=== PATIENT | male | born 1960 | race Caucasian/White ===

== ENCOUNTER 2020-01-30 10:11 | Outpatient (CLI) | payer OTHER, SELFPAY ==
--- NOTE | ~2020-01-30 | XR_ITS ---
XR_[id number]_CR DATE: 01/30/2020 10:47 INDICATION: 3 weeks post cervical spine fusion TECHNIQUE: AP and lateral views COMPARISON: None FINDINGS: Status post anterior and interbody spinal fusion at C6-7. C1 and C2 are normally aligned and the odontoid process is intact. No fracture or dislocation or lock ed facet or prevertebral soft tissue swelling. Cervical interspaces are preserved. IMPRESSION: Status post anterior and interbody spinal fusion at C6-7 Reviewed, dictated and finalized at [facility]. Reviewed, dictated and finalized at [facility].
== END 2020-01-30 10:12 | disposition home or self-care (01) ==
LOC: ANHIMG 10:16
PROVIDERS: PCP Internal Medicine; Visit Provider Neurological Surgery
DX: Z09 Encounter for follow-up examination after completed treatment for conditions other than malignant neoplasm (principal); Z98.1 Arthrodesis status
CPT/HCPCS: 72040

== ENCOUNTER 2020-03-06 11:26 | Outpatient (CLI) | payer OTHER, SELFPAY ==
--- NOTE | ~2020-03-06 | XR_ITS ---
EXAMINATION:XR_CERV2-3V_CR DATE: 03/06/2020 12:01 INDICATION: Neck pain TECHNIQUE: AP, lateral, and odontoid views of the cervical spine are provided. COMPARISON: 01/30/2020 FINDINGS: Alignment is normal. The odontoid is intact. No fracture is identified. There are changes o f anterior fusion at C6-7. The vertebral body heights are maintained. There is mild loss of intervert ebral disc space height at C5-6. Prevertebral soft tissues are normal. IMPRESSION: 1. Anterior fusion at C6-7 without acute findings or significant interval change. Reviewed, dictated and finalized at [facility]. IMPRESSION: 1. Anterior fusion at C6-7 without acute findings or significant interval amrita atwood
== END 2020-03-06 11:27 | disposition home or self-care (01) ==
PROVIDERS: PCP Internal Medicine; Visit Provider Neurological Surgery
DX: Z98.1 Arthrodesis status (principal)
CPT/HCPCS: 72040

== ENCOUNTER 2020-12-25 12:58 | Outpatient (CLI) | payer OTHER, SELFPAY ==
--- NOTE | ~2020-12-25 | XR_ITS ---
XR_CERV2-3V_CR DATE: 12/25/2020 13:26 INDICATION: One-year following surgical spine fusion TECHNIQUE: AP and lateral views COMPARISON: 03/24/2020 cervical spine FINDINGS: Status post anterior and interbody spinal fusion at C6-7. The hardware is intact without fr acture or displacement. Normal alignment of the cerebral spine. No fracture or dislocation or locked facet or prevertebral so ft tissue swelling. There is minimal anterior spurring and mild loss of height at C5-6 consistent with mild degenerative disc disease. IMPRESSION: Status post anterior and interbody spinal fusion at C6-7 Mild degenerative disc disease at C5-6 Reviewed, dictated and finalized at [facility]. Reviewed, dictated and finalized at [facility].
== END 2020-12-25 12:59 | disposition home or self-care (01) ==
LOC: ANHIMG 13:04
PROVIDERS: PCP Internal Medicine; Visit Provider Neurological Surgery
DX: M50.322 Other cervical disc degeneration at C5-C6 level (principal); Z98.1 Arthrodesis status
CPT/HCPCS: 72040

== ENCOUNTER 2021-12-25 09:33 | Outpatient (CLI) | payer OTHER, SELFPAY ==
--- NOTE | ~2021-12-25 | XR_ITS ---
XR_CERV2-3V_CR DATE: 12/25/2021 10:00 INDICATION: Cervical spine fusion 2 years ago. Posterior neck pain. No injury. TECHNIQUE: AP, open-mouth, lateral views COMPARISON: 12/25/2020 cervical spine FINDINGS: Status post anterior and interbody spinal fusion at C6-7, without significant change since 12/25/2020. Mild to moderate degenerative disc disease at C5-6. Remaining cervical interspaces are well preserved . C1 and C2 are normally aligned and the odontoid process is intact. No fracture or dislocation or lock ed facet or prevertebral soft tissue swelling. IMPRESSION: Status post anterior and interbody spinal fusion at C6-7 Mild to moderate degenerative disease at C5-6, mildly progressed since 12/25/2020 Reviewed, dictated and finalized at [facility]. Reviewed, dictated and finalized at [facility].
== END 2021-12-25 09:34 | disposition home or self-care (01) ==
LOC: ANHIMG 09:39
PROVIDERS: PCP Internal Medicine; Visit Provider Neurological Surgery
DX: Z98.1 Arthrodesis status (principal); M50.322 Other cervical disc degeneration at C5-C6 level
CPT/HCPCS: 72040